=== PATIENT | male | born 1930 | race Caucasian/White ===

== ENCOUNTER 2016-11-25 11:28 | Emergency (ER) | payer MEDICARE, BC ==
--- NOTE | 2016-11-25 12:13 | EDM.PDOC ---
ED HPI GENERAL MEDICAL PROBLEM - General Chief Complaint: General Stated Complaint: LETHARGIC/COUGHING UP YELLOW STUFF Time Seen by Provider: 11/25/16 12:10 Source of Information: Reports: Patient, Family History Limitations: Reports: No limitations - History of Present Illness INITIAL COMMENTS - FREE TEXT/NARRATIVE: pt is weaker and he has a bad cough and is wheezy and sob. He had a MN in 2004 . He has not had increased swelling in his legs. Onset: gradual Duration: Day(s):, Other ( Pt has been ill for 5 days. ) Location: Reports: chest Associated Symptoms: Reports: cough, shortness of breath, weakness - Related Data Allergies Allergy/AdvReac Type Severity Reaction Status Date / Time latex Allergy Itching Verified 11/25/16 11:49 NSAIDS (Non-Steroidal Allergy Other Verified 11/25/16 11:49 Anti-Inflamma Home Meds: Home Meds Carvedilol [Carvedilol] 12.5 mg PO BID 11/25/16 [History] Hydrochlorothiazide [Hydrochlorothiazide] 25 mg PO DAILY 11/25/16 [History] Levothyroxine 25 mcg PO ACBREAKFAST 11/25/16 [History] Lisinopril [Lisinopril] 5 mg PO DAILY 11/25/16 [History] Multivitamin [Multivitamins] 1 each PO DAILY 11/25/16 [History] Nitroglycerin 0.4 mg SL ASDIRECTED 11/25/16 [History] Simvastatin [Simvastatin] 40 mg PO BEDTIME 11/25/16 [History] Warfarin Sodium [Warfarin Sodium] 5 mg PO ASDIRECTED 11/25/16 [History] levETIRAcetam [Levetiracetam] 750 mg PO BID 11/25/16 [History] Past Medical History HEENT History: Reports: Impaired vision, Other (see below) Other HEENT History: Blind Cardiovascular History: Reports: CAD, High cholesterol, Hypertension, [place], Pacemaker Genitourinary History: Reports: BPH, Prostate disorder Musculoskeletal History: Reports: Back pain, chronic, Other (see below) Other Musculoskeletal History: weakness Neurological History: Reports: CVA, Seizure Endocrine/Metabolic 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 Oncologic (Cancer) History: Reports: Other (see below) Other Oncologic History: skin ca Dermatologic History: Reports: Other (see below) Other Dermatologic History: skin ca - Infectious Disease History Infectious Disease History: Reports: Chicken pox - Past Surgical History Cardiovascular Surgical History: Reports: Pacer Social & Family History - Tobacco Use Smoking Status *Q: Former Smoker Used Tobacco, but Quit: Yes Month Tobacco Last Used: november - Caffeine Use Caffeine Use: Reports: Coffee - Alcohol Use Days Per Week of Alcohol Use: 2 Number of Drinks Per Day: 1 Total Drinks Per Week: 2 - Recreational Drug Use Recreational Drug Use: No ED ROS GENERAL - Review of Systems Review Of Systems: See Below Constitutional: Reports: weakness, fatigue HEENT: Reports: No symptoms Respiratory: Reports: Shortness of Breath, Wheezing Cardiovascular: Reports: No symptoms Endocrine: Reports: no symptoms GI/Abdominal: Reports: No symptoms : Reports: no symptoms Musculoskeletal: Reports: no symptoms Skin: Reports: no symptoms ED EXAM, GENERAL - Physical Exam Exam: See Below Free Text/Narrative:: pt arrived wheezy and feeling sob. He is weaker than usual. He has been ill for 5 days. He is not running a fever. He is coughing up thick sputum. Exam Limited By: No limitations General Appearance: alert, mild distress Ears: normal TMs Nose: normal inspection Throat/Mouth: Normal inspection Head: atraumatic Neck: normal inspection Respiratory/Chest: decreased breath sounds, rhonchi, wheezing Cardiovascular: regular rate, rhythm, other (pt has a permanent pacemaker) GI/Abdominal: soft, non tender (Male) Exam: Deferred Rectal (Males) Exam: Deferred Back Exam: normal inspection Extremities: other ( slight edema present. 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 ) Course - Vital Signs Last Recorded V/S: Last Vital Signs Temp 35.8 C 11/25/16 11:57 Pulse 61 11/25/16 14:22 Resp 16 11/25/16 14:22 BP 94/50 L 11/25/16 14:22 Pulse Ox 95 11/25/16 14:22 - Orders/Labs/Meds Orders: Active Orders 24 hr Category Date Time Status RT Aerosol Therapy [RC] ASDIRECTED Care 11/25/16 12:08 Active CULTURE RESPIRATORY + SMEAR [RM] Stat Lab 11/25/16 14:19 Received Sodium Chloride 0.9% [Saline Flush] Med 11/25/16 12:49 Active 10 ml FLUSH ASDIRECTED PRN Saline Lock Insert [OM.PC] Routine Oth 11/25/16 12:49 Ordered Medication Orders Sodium Chloride (Saline Flush) 10 ml FLUSH ASDIRECTED PRN PRN Reason: Keep Vein Open Labs: Laboratory Tests 11/25/16 11/25/16 11/25/16 Range/Units 11:51 11:51 11:51 WBC 9.8 (4.5-11.0) K/uL RBC 4.64 (4.30-5.90) M/uL Hgb 15.2 H (12.0-15.0) g/dL Hct 44.2 (40.0-54.0) % MCV 95 (80-98) fL MCH 33 H (27-31) pg MCHC 34 (32-36) % Plt Count 192 (150-400) K/uL Neut % (Auto) 56 (36-66) % Lymph % (Auto) 31 (24-44) % [place] % (Auto) 10 H (2-6) % Eos % (Auto) 3 (2-4) % Baso % (Auto) 0 (0-1) % PT (9.5-12.0) sec INR (0.80-1.20) Sodium 140 (140-148) mmol/L Potassium 3.8 (3.6-5.2) mmol/L Chloride 107 (100-108) mmol/L Carbon Dioxide 27 (21-32) mmol/L Anion Gap 5.8 (5.0-14.0) mmol/L BUN 27 H (7-18) mg/dL Creatinine 1.2 (0.8-1.3) mg/dL Est Cr Clr Drug Dosing 41.31 mL/min Estimated GFR (MDRD) 57 L (>60) Glucose 106 (74-106) mg/dL Lactic Acid 1.8 (0.4-2.0) mmol/L Calcium 8.5 (8.5-10.1) mg/dL Total Bilirubin 0.6 (0.2-1.0) mg/dL AST 23 (15-37) U/L ALT 26 (12-78) U/L Alkaline Phosphatase 67 (46-116) U/L C-Reactive Protein 0.99 H (0.0-0.3) mg/dL [id number] Pept (5-450) pg/mL Total Protein 7.3 (6.4-8.2) g/dL Albumin 3.0 L (3.4-5.0) g/dL Globulin 4.3 H (2.3-3.5) g/dL Albumin/Globulin Ratio 0.7 L (1.2-2.2) Urine Color Urine Appearance Urine pH (4.5-8.0) Ur Specific [place] (1.008-1.030) Urine Protein (NEGATIVE) mg/dL Urine Glucose (UA) (NEGATIVE) mg/dL Urine Ketones (NEGATIVE) mg/dL Urine Occult Blood (NEGATIVE) Urine Nitrite (NEGAITVE) Urine Bilirubin (NEGATIVE) Urine Urobilinogen (NORMAL) mg/dL Ur Leukocyte Esterase (NEGATIVE) Urine RBC (0-5) Urine WBC (0-5) Ur Epithelial Cells Amorphous Sediment Urine Bacteria Urine Mucus 11/25/16 11/25/16 11/25/16 Range/Units 12:09 12:13 14:30 WBC (4.5-11.0) K/uL RBC (4.30-5.90) M/uL Hgb (12.0-15.0) g/dL Hct (40.0-54.0) % MCV (80-98) fL MCH (27-31) pg MCHC (32-36) % Plt Count (150-400) K/uL Neut % (Auto) (36-66) % Lymph % (Auto) (24-44) % [place] % (Auto) (2-6) % Eos % (Auto) (2-4) % Baso % (Auto) (0-1) % PT 26.3 H (9.5-12.0) sec INR 2.41 H (0.80-1.20) Sodium (140-148) mmol/L Potassium (3.6-5.2) mmol/L Chloride (100-108) mmol/L Carbon Dioxide (21-32) mmol/L Anion Gap (5.0-14.0) mmol/L BUN (7-18) mg/dL Creatinine (0.8-1.3) mg/dL Est Cr Clr Drug Dosing mL/min Estimated GFR (MDRD) (>60) Glucose (74-106) mg/dL Lactic Acid (0.4-2.0) mmol/L Calcium (8.5-10.1) mg/dL Total Bilirubin (0.2-1.0) mg/dL AST (15-37) U/L ALT (12-78) U/L Alkaline Phosphatase (46-116) U/L C-Reactive Protein (0.0-0.3) mg/dL Ehw-[id number]-Tdjetytziab Pept 803 H (5-450) pg/mL Total Protein (6.4-8.2) g/dL Albumin (3.4-5.0) g/dL Globulin (2.3-3.5) g/dL Albumin/Globulin Ratio (1.2-2.2) Urine Color Yellow Urine Appearance Clear Urine pH 6.0 (4.5-8.0) Ur Specific [place] 1.015 (1.008-1.030) Urine Protein Negative (NEGATIVE) mg/dL Urine Glucose (UA) Normal (NEGATIVE) mg/dL Urine Ketones Negative (NEGATIVE) mg/dL Urine Occult Blood Negative (NEGATIVE) Urine Nitrite Negative (NEGAITVE) Urine Bilirubin Negative (NEGATIVE) Urine Urobilinogen Normal (NORMAL) mg/dL Ur Leukocyte Esterase Negative (NEGATIVE) Urine RBC Not seen (0-5) Urine WBC 20-30 H (0-5) Ur Epithelial Cells Few Amorphous Sediment Not seen Urine Bacteria Moderate Urine Mucus Few Meds: Medications Generic Name Dose Route Start Last Admin Trade Name Freq PRN Reason Stop Dose Admin Sodium Chloride 10 ml 11/25/16 12:49 Saline Flush FLUSH ASDIRECTED PRN Keep Vein Open Discontinued Medications Generic Name Dose Route Start Last Admin Trade Name Freq PRN Reason Stop Dose Admin Albuterol 2.5 mg 11/25/16 12:08 11/25/16 14:21 Proventil Neb Soln NEB 11/25/16 12:09 2.5 mg ONETIME ONE Administration Furosemide 60 mg 11/25/16 12:57 11/25/16 13:40 Lasix IVPUSH 11/25/16 12:58 60 mg ONETIME ONE Administration Ceftriaxone Sodium 1 gm/ 50 mls @ 100 mls/hr 11/25/16 14:18 11/25/16 14:26 Sodium Chloride IV 11/25/16 14:47 100 mls/hr ONETIME ONE Administration - Re-Assessments/Exams Free Text/Narrative Re-Assessment/Exam: 11/25/16 15:02 bnp was elevated and he did have cardiomegoly. His bnp was 800. He is raising yellow sputum and this was cultured. He was gven a neb and his breathing did improve. He had a second one shortly before leaving. He was given lasix 60mg iv and he has not put out much from that. Departure - Departure Time of Disposition: 15:05 Disposition: Home, Self-Care 01 Condition: fair Clinical Impression: Bronchitis, Bronchospasm, Fluid overload Forms: ED Department Discharge Care Plan Goals: drink fluids as usual, cool mist humidifer, albuterol 2 puffs tid for the next 10 days, augmentin 875 bid, robitussin ac 2 tsp q6h prn for cough, lasix 20mg daily for 3 days, follow up appt with regular Dr in 4-5 days. Use yogurt or probiotic while on the augmentin. - My Orders Last 24 Hours: My Active Orders 11/25/16 12:08 RT Aerosol Therapy [RC] ASDIRECTED 11/25/16 12:49 Sodium Chloride 0.9% [Saline Flush] 10 ml FLUSH ASDIRECTED PRN Saline Lock Insert [OM.PC] Routine 11/25/16 14:19 CULTURE RESPIRATORY + SMEAR [RM] Stat - Assessment/Plan Last 24 Hours: My Active Orders 11/25/16 12:08 RT Aerosol Therapy [RC] ASDIRECTED 11/25/16 12:49 Sodium Chloride 0.9% [Saline Flush] 10 ml FLUSH ASDIRECTED PRN Saline Lock Insert [OM.PC] Routine 11/25/16 14:19 CULTURE RESPIRATORY + SMEAR [RM] Stat
[2016-11-25] MEDS: Albuterol 0.083% 2.5 MG/3 ML Neb Soln NEB ONE ×2 (12:24→14:21)
--- NOTE | 2016-11-25 12:37 | CR ---
Chest 1V Frontal FINDINGS: There is a cardiac pacemaker on the left. The cardiac leads appear intact. The heart and v ascular structures are normal in appearance. No infiltrates or effusions are demonstrated. The skele nilo structures are unremarkable. IMPRESSION: Negative exam.
[2016-11-25] MEDS ORDERED: Sodium Chloride 0.9% 10 ML Syringe FLUSH PRN (12:49)
[2016-11-25] MEDS ORDERED: Furosemide 40 MG/4 ML VIAL IVPUSH ONE (12:57)
[2016-11-25] MEDS ORDERED: cefTRIAXone 1 GM in Sodium Chloride 0.9% 50 ML IV ONE (14:18)
[2016-11-25 14:22] VITALS: BP 94/50
== END 2016-11-25 15:22 | disposition home or self-care (01) ==
LOC: JP.ED 11:28
DX: J40 Bronchitis, not specified as acute or chronic (principal); J98.01 Acute bronchospasm; E87.70 Fluid overload, unspecified; I25.10 Atherosclerotic heart disease of native coronary artery without angina pectoris; I10 Essential (primary) hypertension; I25.2 Old myocardial infarction; E78.00 Pure hypercholesterolemia, unspecified; E20.9 Hypoparathyroidism, unspecified; Z85.828 Personal history of other malignant neoplasm of skin; Z87.891 Personal history of nicotine dependence; Z79.01 Long term (current) use of anticoagulants; Z79.899 Other long term (current) drug therapy; Z95.0 Presence of cardiac pacemaker; Z88.8 Allergy status to other drugs, medicaments and biological substances; Z91.040 Latex allergy status
CPT/HCPCS: 36415; 71010; 80053; 81001; 83605; 83880; 85025; 85610; 86140; 87070; 87205; 94640; 96365; 96375; 99283; J0696; J1940; J7050; 99284

== ENCOUNTER 2017-01-14 20:36 | Emergency (ER) | payer MEDICARE, BC ==
--- NOTE | 2017-01-14 21:43 | EDM.PDOC ---
ED HPI GENERAL MEDICAL PROBLEM - General Chief Complaint: Lower Extremity Injury/Pain Stated Complaint: FALL Time Seen by Provider: 01/14/17 21:44 Source of Information: Reports: Patient, Family History Limitations: Reports: No Limitations - History of Present Illness INITIAL COMMENTS - FREE TEXT/NARRATIVE: pt was walking on the deck with the help of his . Hi hat flew off and he lost his balance. He fell and they had to get help to get him up. Onset: Today Duration: Hour(s): Location: Reports: Upper Extremity, Left, Lower Extremity, Left, Lower Extremity , Right Associated Symptoms: Reports: No Other Symptoms - Related Data Allergies Allergy/AdvReac Type Severity Reaction Status Date / Time latex Allergy Itching Verified 11/25/16 11:49 NSAIDS (Non-Steroidal Allergy Other Verified 11/25/16 11:49 Anti-Inflamma Home Meds: Home Meds Carvedilol [Carvedilol] 12.5 mg PO BID 11/25/16 [History] Hydrochlorothiazide [Hydrochlorothiazide] 25 mg PO DAILY 11/25/16 [History] Levothyroxine 25 mcg PO ACBREAKFAST 11/25/16 [History] Lisinopril [Lisinopril] 5 mg PO DAILY 11/25/16 [History] Multivitamin [Multivitamins] 1 each PO DAILY 11/25/16 [History] Nitroglycerin 0.4 mg SL ASDIRECTED 11/25/16 [History] Simvastatin [Simvastatin] 40 mg PO BEDTIME 11/25/16 [History] Warfarin Sodium [Warfarin Sodium] 5 mg PO ASDIRECTED 11/25/16 [History] levETIRAcetam [Levetiracetam] 750 mg PO BID 11/25/16 [History] Past Medical History HEENT History: Reports: Impaired Vision, Other (See Below) Other HEENT History: Blind Cardiovascular History: Reports: CAD, High Cholesterol, Hypertension, [place], Pacemaker Genitourinary History: Reports: BPH, Prostate Disorder Musculoskeletal History: Reports: Back Pain, Chronic, Other (See Below) Other Musculoskeletal History: weakness Neurological History: Reports: CVA, Seizure Endocrine/Metabolic 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 Oncologic (Cancer) History: Reports: Other (See Below) Other Oncologic History: skin ca Dermatologic History: Reports: Other (See Below) Other Dermatologic History: skin ca - Infectious Disease History Infectious Disease History: Reports: Chicken Pox, Measles, Mumps - Past Surgical History Cardiovascular Surgical History: Reports: Pacer Social & Family History - Tobacco Use Smoking Status *Q: Never Smoker Used Tobacco, but Quit: Yes Month Tobacco Last Used: november - Caffeine Use Caffeine Use: Reports: None - Alcohol Use Days Per Week of Alcohol Use: 2 Number of Drinks Per Day: 1 Total Drinks Per Week: 2 - Recreational Drug Use Recreational Drug Use: No Review of Systems - Review of Systems Review Of Systems: See Below Constitutional: Reports: No Symptoms Eyes: Reports: No Symptoms Ears: Reports: No Symptoms Nose: Reports: No Symptoms Mouth/Throat: Reports: No Symptoms Respiratory: Reports: No Symptoms Cardiovascular: Reports: No Symptoms GI/Abdominal: Reports: No Symptoms Genitourinary: Reports: No Symptoms Musculoskeletal: Reports: Other ( redness in both knees no pain to stand on them redness on the left elebow. ) ED EXAM, GENERAL - Physical Exam Exam: See Below Free Text/Narrative:: pt fell. She is not having increased pain. His wiofe believes he is ok. Exam Limited By: No Limitations General Appearance: Alert, No Apparent Distress, Anxious Ears: Normal TMs Nose: Normal Inspection Throat/Mouth: Normal Inspection Head: Atraumatic Neck: Normal Inspection Respiratory/Chest: No Respiratory Distress Cardiovascular: Regular Rate, Rhythm GI/Abdominal: Soft, Non-Tender (Male) Exam: Deferred Rectal (Males) Exam: Deferred Extremities: Other ( redness on both knees and mild redness on the left elebow. ) Neurological: Alert, Oriented, Normal Cognition Departure - Departure Time of Disposition: 21:40 Disposition: Home, Self-Care 01 Condition: Fair Clinical Impression: Contusion of knee, right, Contusion of left knee - Discharge Information Referrals: Mathew Warren MD [Primary Care Provider] - Forms: ED Department Discharge Care Plan Goals: apply lotion to the knees and left elebow, cool pack if any swelling, rtc if problems. ;
== END 2017-01-14 21:50 | disposition home or self-care (01) ==
LOC: JP.ED 20:36
DX: S80.02XA Contusion of left knee, initial encounter (principal); S80.01XA Contusion of right knee, initial encounter; I25.10 Atherosclerotic heart disease of native coronary artery without angina pectoris; I10 Essential (primary) hypertension; E78.00 Pure hypercholesterolemia, unspecified; E20.9 Hypoparathyroidism, unspecified; I25.2 Old myocardial infarction; Z95.0 Presence of cardiac pacemaker; Z86.73 Personal history of transient ischemic attack (TIA), and cerebral infarction without residual deficits; Z79.899 Other long term (current) drug therapy; Z91.040 Latex allergy status; Z88.8 Allergy status to other drugs, medicaments and biological substances; Z79.01 Long term (current) use of anticoagulants; Z85.828 Personal history of other malignant neoplasm of skin; W19.XXXA Unspecified fall, initial encounter
CPT/HCPCS: 99282; 99283

== ENCOUNTER 2017-03-09 15:53 | Emergency (ER) | payer MEDICARE, BC ==
[2017-03-09 16:05] VITALS: BP 124/71
--- NOTE | 2017-03-09 17:38 | EDM.PDOC ---
[id number] [facility] [place] Time Seen by Provider: 03/09/17 16:10 Source of Information: Reports: Patient, EMS, Family History Limitations: Reports: No Limitations - History of Present Illness INITIAL COMMENTS - FREE TEXT/NARRATIVE: 86-year-old male developed some nausea, and lightheadedness, dizziness, and then fainted. He was incontinent. His family was afraid he was having a stroke so they called EMS. On arrival he was found to be mildly hypotensive and bradycardic but his blood sugar was normal, he was alert and answering questions appropriately. By the time he arrived to the emergency room he was baseline. Denies any current nausea or vomiting or diarrhea. His is concerned that his oral intake of fluids has been down the last few days. He's had no fevers or chills. He's had 2 doses of tramadol, a new pain medication for him, the second dose taken today. Onset: Sudden Severity: Moderate Associated Symptoms: Reports: Nausea/Vomiting, Syncope, Weakness. Denies: Fever /Chills, Headaches, Shortness of Breath - Related Data Allergies Allergy/AdvReac Type Severity Reaction Status Date / Time latex Allergy Itching Verified 03/09/17 16:17 NSAIDS (Non-Steroidal Allergy Other Verified 03/09/17 16:17 Anti-Inflamma Home Meds: Home Meds Carvedilol [Carvedilol] 12.5 mg PO BID 11/25/16 [History] Hydrochlorothiazide [Hydrochlorothiazide] 25 mg PO DAILY 11/25/16 [History] Levothyroxine 25 mcg PO ACBREAKFAST 11/25/16 [History] Lisinopril [Lisinopril] 5 mg PO DAILY 11/25/16 [History] Multivitamin [Multivitamins] 1 each PO DAILY 11/25/16 [History] Nitroglycerin 0.4 mg SL ASDIRECTED 11/25/16 [History] Simvastatin [Simvastatin] 40 mg PO BEDTIME 11/25/16 [History] Warfarin Sodium [Warfarin Sodium] 5 mg PO ASDIRECTED 11/25/16 [History] levETIRAcetam [Levetiracetam] 750 mg PO BID 11/25/16 [History] Past Medical History HEENT History: Reports: Impaired Vision, Other (See Below) Other HEENT History: Blind Cardiovascular History: Reports: CAD, High Cholesterol, Hypertension, [place], Pacemaker Genitourinary History: Reports: BPH, Prostate Disorder, Renal Calculus Musculoskeletal History: Reports: Back Pain, Chronic, Other (See Below) Other Musculoskeletal History: weakness Neurological History: Reports: CVA, Seizure Endocrine/Metabolic History: Reports: Hypothyroidism Oncologic (Cancer) History: Reports: Prostate, Other (See Below) Other Oncologic History: skin ca Dermatologic History: Reports: Other (See Below) Other Dermatologic History: skin ca - Infectious Disease History Infectious Disease History: Reports: Chicken Pox, Measles, Mumps - Past Surgical History Cardiovascular Surgical History: Reports: Pacer Male Surgical History: Reports: Prostatectomy Social & Family History - Tobacco Use Smoking Status *Q: Unknown Ever Smoked Used Tobacco, but Quit: Yes Month Tobacco Last Used: november - Caffeine Use Caffeine Use: Reports: None - Alcohol Use Days Per Week of Alcohol Use: 2 Number of Drinks Per Day: 1 Total Drinks Per Week: 2 - Recreational Drug Use Recreational Drug Use: No ED ROS GENERAL - Review of Systems Review Of Systems: See Below Constitutional: Reports: Malaise. Denies: Fever, Chills HEENT: Reports: Other (Patient is blind) Respiratory: Denies: Shortness of Breath, Cough Cardiovascular: Denies: Chest Pain GI/Abdominal: Reports: Nausea. Denies: Abdominal Pain, Diarrhea, Vomiting : Reports: No Symptoms Musculoskeletal: Reports: Back Pain (Chronic back pain) - Physical Exam Exam: See Below Exam Limited By: No Limitations General Appearance: Alert, No Apparent Distress Respiratory/Chest: No Respiratory Distress, Lungs Clear Cardiovascular: Regular Rate, Rhythm GI/Abdominal: Normal Bowel Sounds, Soft Neuro Exam (Abbreviated): Alert, Oriented, No Motor/Sensory Deficits, Other (Is clinically blind) Skin Exam: Warm, Dry Course - Vital Signs Last Recorded V/S: Last Vital Signs Temp 97.0 F 03/09/17 16:11 Pulse 59 L 03/09/17 16:11 Resp 15 03/09/17 16:11 BP 124/71 03/09/17 16:11 Pulse Ox 96 03/09/17 16:11 - Orders/Labs/Meds Labs: Laboratory Tests 03/09/17 03/09/17 Range/Units 16:58 16:58 WBC 11.0 (4.5-11.0) K/uL RBC 4.24 L (4.30-5.90) M/uL Hgb 13.8 (12.0-15.0) g/dL Hct 41.1 (40.0-54.0) % MCV 97 (80-98) fL MCH 33 H (27-31) pg MCHC 34 (32-36) % Plt Count 209 (150-400) K/uL Neut % (Auto) 68 H (36-66) % Lymph % (Auto) 23 L (24-44) % [place] % (Auto) 8 H (2-6) % Eos % (Auto) 2 (2-4) % Baso % (Auto) 1 (0-1) % Sodium 143 (140-148) mmol/L Potassium 3.8 (3.6-5.2) mmol/L Chloride 105 (100-108) mmol/L Carbon Dioxide 30 (21-32) mmol/L Anion Gap 8.3 (5.0-14.0) mmol/L BUN 32 H (7-18) mg/dL Creatinine 1.5 H (0.8-1.3) mg/dL Est Cr Clr Drug Dosing 33.05 mL/min Estimated GFR (MDRD) 44 L (>60) Glucose 124 H (74-106) mg/dL Calcium 8.8 (8.5-10.1) mg/dL - Re-Assessments/Exams Free Text/Narrative Re-Assessment/Exam: 03/09/17 17:37 Patient was monitored and remained in normal sinus rhythm. CBC was normal, BMP showed creatinine of 1.5, higher than the 1.2 on his last ER visit. Everything else looked good. 03/09/17 17:38 Patient was told to not use tramadol in the future, 20 Vicodin were given to use one half to one pill every 3-4 hours. Departure - Departure Time of Disposition: 18:27 Disposition: Home, Self-Care 01 Condition: Good Clinical Impression: Vasovagal syncope - Discharge Information Instructions: Syncope, [id number] Referrals: Mathew Warren MD [Primary Care Provider] - Forms: ED Department Discharge Care Plan Goals: Continue your regular medications, use Vicodin as directed for pain control and drink lots of water. Recheck at any time if worsening or concerns.
== END 2017-03-09 18:28 | disposition home or self-care (01) ==
LOC: JP.ED 15:53
DX: R55 Syncope and collapse (principal); I25.10 Atherosclerotic heart disease of native coronary artery without angina pectoris; E78.00 Pure hypercholesterolemia, unspecified; I10 Essential (primary) hypertension; I25.2 Old myocardial infarction; H54.0 Blindness, both eyes; Z86.73 Personal history of transient ischemic attack (TIA), and cerebral infarction without residual deficits; Z95.0 Presence of cardiac pacemaker; E03.9 Hypothyroidism, unspecified; Z90.79 Acquired absence of other genital organ(s); Z85.828 Personal history of other malignant neoplasm of skin; Z79.01 Long term (current) use of anticoagulants; Z79.899 Other long term (current) drug therapy; Z91.040 Latex allergy status; Z88.8 Allergy status to other drugs, medicaments and biological substances
CPT/HCPCS: 36415; 80048; 85025; 99284